=== PATIENT | male | born 1995 | race African-American/Black ===

== ENCOUNTER 2019-01-27 21:23 | Emergency (ER) | payer MEDICAID ==
[~2019-01-27] VITALS: Ht 167.6 cm; Wt 63.0 kg
--- NOTE | 2019-01-27 21:40 | NUR ---
PT PRESENTS TO ED C/O HX OF SZ W/ LAST SZ "A COUPLE YEARS AGO". STATES SZ LASTING 10-20 MINUTES TONIGHT WITNESSED BY FRIENDS. DENIES HEAD TRAUMA. STATES POSTICTAL PHASE LASTING 30 MINUTES. A+Ox4 IN ED. NEURO FULLY INTACT. SZ PRECAUTIONS IN PLACE. ALL MONITORING APPLIED. VSS. CALL LIGHT WITHIN REACH.
[2019-01-27 22:24] LABS: BASOPHILS # (AUTO) 0.04 x10^3/uL (0-0.1); BASOPHILS % (AUTO) 1 % (0-1); EOSINOPHILS # (AUTO) 0.12 x10^3/uL (0-0.4); EOSINOPHILS % (AUTO) 2 % (1-7); LYMPHOCYTES # (AUTO) 1.79 x10^3/uL (1-3.4); LYMPHOCYTES % (AUTO) 28 % (22-44); MD NO; MEAN CORPUSCULAR HEMOGLOBIN 33.4 pg (27.5-34.5); MEAN CORPUSCULAR HGB CONC 34.4 g/dL (33.2-36.2); MEAN CORPUSCULAR VOLUME 97.1 fL (81-97); MEAN PLATELET VOLUME 8.6 fL (7.4-10.4); MONOCYTES # (AUTO) 0.61 x10^3/uL (0.2-0.8); MONOCYTES % (AUTO) 10 % (2-9); NEUTROPHILS # (AUTO) 3.75 x10^3/uL (1.8-6.8); NEUTROPHILS % (AUTO) 60 % (42-75); PLATELET COUNT 196 x10^3/uL (130-400); RED BLOOD COUNT 4.59 x10^6/uL (4.38-5.82); RED CELL DISTRIBUTION WIDTH 13.2 % (9.4-14.8)
[2019-01-27 22:33] LABS: ALBUMIN 3.9 g/dL (3.4-5.0); ANION GAP 8 mmol/L (5-15); CHLORIDE 112 mmol/L (98-107)
[2019-01-27 22:39] LABS: ALANINE AMINOTRANSFERASE 19 U/L (12-78); ALKALINE PHOSPHATASE 77 U/L (45-117); BILIRUBIN,TOTAL 0.6 mg/dL (0.2-1.0); CREATININE 1.43 mg/dL (0.7-1.3); TOTAL PROTEIN 6.8 g/dL (6.4-8.2)
[2019-01-27 23:28] VITALS: BP 108/71
== END 2019-01-27 23:30 | disposition home or self-care (01) ==
LOC: ED 23:20
DX: G40.309 Generalized idiopathic epilepsy and epileptic syndromes, not intractable, without status epilepticus (principal)
CPT/HCPCS: 36415; 80053; 85025; 93005; 99284

== ENCOUNTER 2019-11-24 20:47 | Emergency (ER) | payer SELFPAY ==
[~2019-11-24] VITALS: Ht 162.6 cm; Wt 63.4 kg
--- NOTE | 2019-11-24 21:00 | NUR ---
[facility], per report patient was in a standing position talking to his friend and started to get stiff and fell forward and started seizing ( tonic / clonic ) ~ 1-2 mins. abrasions on left forehead and left hand
--- NOTE | 2019-11-24 21:03 | NUR ---
patient non compliant to his medication ( elvia ).
--- NOTE | 2019-11-24 21:10 | NUR ---
ERP at bedside.
[2019-11-24 21:18] LABS: BASOPHILS # (AUTO) 0.03 x10^3/uL (0-0.1); BASOPHILS % (AUTO) 0 % (0-1); EOSINOPHILS # (AUTO) 0.14 x10^3/uL (0-0.4); EOSINOPHILS % (AUTO) 2 % (1-7); LYMPHOCYTES # (AUTO) 2.33 x10^3/uL (1-3.4); LYMPHOCYTES % (AUTO) 30 % (22-44); MD NO; MEAN CORPUSCULAR HEMOGLOBIN 34.2 pg (27.5-34.5); MEAN CORPUSCULAR HGB CONC 34.1 g/dL (33.2-36.2); MEAN CORPUSCULAR VOLUME 100.4 fL (81-97); MEAN PLATELET VOLUME 8.5 fL (7.4-10.4); MONOCYTES # (AUTO) 0.95 x10^3/uL (0.2-0.8); MONOCYTES % (AUTO) 12 % (2-9); NEUTROPHILS # (AUTO) 4.36 x10^3/uL (1.8-6.8); NEUTROPHILS % (AUTO) 56 % (42-75); PLATELET COUNT 234 x10^3/uL (130-400); RED BLOOD COUNT 4.88 x10^6/uL (4.38-5.82); RED CELL DISTRIBUTION WIDTH 12.8 % (9.4-14.8)
[2019-11-24 21:26] LABS: ALBUMIN 3.8 g/dL (3.4-5.0); ANION GAP 10 mmol/L (5-15); CALCIUM 9.2 mg/dL (8.5-10.1); CHLORIDE 108 mmol/L (98-107); CREATININE 1.49 mg/dL (0.7-1.3)
--- NOTE | 2019-11-24 21:26 | NUR ---
patient back from CT Scan.
--- NOTE | 2019-11-24 21:27 | NUR ---
blood drawn by lab nurse. awaiting results.
--- NOTE | 2019-11-24 21:30 | NUR ---
patient released from 4 points restraints. sleeping, VSS. will continue to monitor.
[2019-11-24] MEDS ORDERED: LEVETIRACETAM 1,000 MG in SODIUM CHLORIDE 0.9% 100 ML IV ONE (22:30)
[2019-11-24] MEDS ORDERED: NEOSPORIN OINT. PKT 1 PACKET ONE (23:32)
[2019-11-24 23:42] VITALS: BP 109/55
--- NOTE | 2019-11-24 23:42 | NUR ---
re-evaluation done. patient discharged with prescription and instruction. verbalized understanding.
== END 2019-11-24 23:45 | disposition home or self-care (01) ==
LOC: ED 23:39
DX: G40.409 Other generalized epilepsy and epileptic syndromes, not intractable, without status epilepticus (principal); F17.200 Nicotine dependence, unspecified, uncomplicated; R51 Headache
CPT/HCPCS: 36415; 70450; 80048; 82040; 85025; 93005; 96365; 99284; J1953

== ENCOUNTER 2021-02-20 00:07 | Emergency (ER) | payer MEDICAID ==
[~2021-02-20] VITALS: Ht 180.3 cm; Wt 74.0 kg
[2021-02-20 00:28] LABS: BASOPHILS % (AUTO) 1 % (0-1); EOSINOPHILS % (AUTO) 1 % (1-7); LYMPHOCYTES % (AUTO) 28 % (22-44); MD NO; MEAN CORPUSCULAR HEMOGLOBIN 34.1 pg (27.5-34.5); MEAN CORPUSCULAR HGB CONC 33.5 g/dL (33.2-36.2); MEAN PLATELET VOLUME 8.4 fL (7.4-10.4); MONOCYTES % (AUTO) 10 % (2-9); NEUTROPHILS % (AUTO) 60 % (42-75); PLATELET COUNT 307 x10^3/uL (130-400); RED CELL DISTRIBUTION WIDTH 12.5 % (9.4-14.8)
[2021-02-20 00:39] LABS: ALANINE AMINOTRANSFERASE 17 U/L (12-78); ALBUMIN 4.2 g/dL (3.4-5.0); ANION GAP 19 mmol/L (5-15); CALCIUM 9.4 mg/dL (8.5-10.1); CHLORIDE 108 mmol/L (98-107); CREATININE 1.83 mg/dL (0.7-1.3)
[2021-02-20 00:42] LABS: ALKALINE PHOSPHATASE 100 U/L (45-117); BILIRUBIN,TOTAL 0.7 mg/dL (0.2-1.0)
[2021-02-20] MEDS ORDERED: SODIUM CHLORIDE 0.9% 1,000ML IVBOLUS ONE (01:00)
--- NOTE | 2021-02-20 01:25 | NUR ---
PT AT CT
--- NOTE | 2021-02-20 01:31 | NUR ---
PT FOUND PASSED OUT IN FRONT OF GAS STATION. PT REFUSED TO AWNSER QUESTIONS FOR EMS. PT SMELLED OF ETOH. PT A/O X4 AT ER WITH PT GIVING NAME, AND SSN. PT ADMITED TO DRINKING ETOH
--- NOTE | 2021-02-20 01:37 | NUR ---
PT BACK FROM CT, PT RESTING IN BED. PT ON MONITOR WITH PT VSS
--- NOTE | 2021-02-20 02:41 | NUR ---
PT RESTING IN BED. PT WITH UNLABORED EQUAL BREATHS. PT ON MONITOR WITH PT VSS. PT DENIED ANY CURRENT WANTS OR NEEDS AT THIS TIME.
--- NOTE | 2021-02-20 02:59 | NUR ---
REPORT TO SIMONE ELDER
--- NOTE | 2021-02-20 03:02 | NUR ---
bedside report from moisés rn, pt nad, resting on gurney, vss, bed in lowest, rails engaged, call light on lap, appears comfortable, even and unlabored respirations noted, wctm. waiting for uds and mtf
--- NOTE | 2021-02-20 04:02 | NUR ---
UDS SENT TO LAB. PT NAD, RESTING ON GURNEY, VSS, APPEARS COMFORTABLE, BED IN LOWEST, RAILS ENGAGED, CALL LIGHT ON LAP, MONITORING IN PLACE. [place].
[2021-02-20 04:23] VITALS: BP 116/59
--- NOTE | 2021-02-20 04:23 | NUR ---
pt resting on gurney, nad, appears comfortable, vss, denies additional questions or needs, wctm. mtf
[2021-02-20 04:24] LABS: AMPHETAMINE SCREEN, URINE Positive (Negative); BARBITURATE SCREEN, URINE Negative (Negative); BENZODIAZEPINE SCREEN, URINE Negative (Negative); CANNABINOID SCREEN, URINE Positive (Negative); COCAINE SCREEN, URINE Negative (Negative); METHADONE SCREEN, URINE Negative (Negative); OPIATE SCREEN, URINE Negative (Negative)
--- NOTE | 2021-02-20 04:41 | NUR ---
pt up out of [place], ambulatory with a smooth and steady gait, nad, denies additional questions or needs at this time. pt left prior to being given dc paperwork. no personal belongings left in room after dc.
== END 2021-02-20 04:45 | disposition left against medical advice (07) ==
LOC: EDBD 00:07 → MERGE 04:40 → ED 04:40
DX: F15.129 Other stimulant abuse with intoxication, unspecified (principal); R41.82 Altered mental status, unspecified; R51.9 Headache, unspecified; Z72.9 Problem related to lifestyle, unspecified
CPT/HCPCS: 36415; 70450; 80053; 80307; 80320; 85025; 96360; 99285; J7030; G0480